=== PATIENT | female | born 1950 | race Caucasian/White ===

== ENCOUNTER 2019-10-15 11:06 | Emergency (ER) | payer MEDICARE, OTHER ==
[~2019-10-15] VITALS: Ht 167.7 cm; Wt 68.1 kg
[2019-10-15] MEDS ORDERED: METO-333 (11:18)
[2019-10-15] MEDS ORDERED: WARF4TAB70 (11:18)
[2019-10-15] MEDS ORDERED: POTA20TA15 (11:18)
[2019-10-15] MEDS ORDERED: EZET10TA49 (11:20)
[2019-10-15] MEDS ORDERED: SERT50TA9 (11:20)
[2019-10-15] MEDS ORDERED: TRAM50TA3 (11:20)
[2019-10-15] MEDS ORDERED: ATOR80TA76 (11:20)
[2019-10-15] MEDS ORDERED: LIDOCAINE 1% INJ 20 ML 20 ML VIAL INJ ONE (11:30)
--- NOTE | 2019-10-15 11:30 | ED Trauma-Multisystem ---
General Chief Complaint: Laceration Stated Complaint: PINKY LAC Source of Information: Patient, EMS Exam Limitations: No Limitations History of Present Illness Date Seen by Provider: Oct 15, 2019 Time Seen by Provider: 11:10 Initial Comments The patient is a pleasant 69-year-old female presents for evaluation after a mechanical fall. She states that she was walking when she tripped and hit her left forehead on the ground. She did not lose consciousness and is denying any headache or neck pain. She is anticoagulated with warfarin. She also has a laceration to the left pinky which is a distal fingertip avulsion. She denies shortness of breath, chest pain, abdominal or back pain, dizziness, vision changes, focal weakness or numbness, nausea or vomiting. She is not up-to-date with tetanus so this will be given today. She is alert and oriented 4, calm, and appears to be in no distress. Occurred: Just Prior to Arrival Severity: Moderate Pain/Injury Location: Face, Upper Extremity (left 5th finger laceration) Method of Injury: Fall Modifying Factors: Movement (of finger makes pain worse) Loss of Consciousness: No Loss of Consciousness Associated Symptoms (Fall): Denies Symptoms Allergies and Home Medications Allergies Coded Allergies: No Known Drug Allergies (Unverified , 10/15/19) Patient Home Medication List Home Medication List Reviewed: Yes Review of Systems Review of Systems Constitutional: no symptoms reported Eyes: Other (left periorbital contusion) Ears: No Symptoms Reported Nose: No Symptoms Reported Mouth: No Symptoms Reported Throat: No Symptoms to Report Respiratory: no symptoms reported Cardiovascular: No Symptoms Reported Gastrointestinal: no symptoms reported Genitourinary: no symptoms reported Musculoskeletal: no symptoms reported Skin: other (fingertip avulsion laceration to the left fifth finger) Psychiatric/Neurological: No Symptoms Reported Past Bjqsmrj-Gzivik-Sxlbbk Hx Past Med/Social Hx: Reviewed Nursing Past Med/Soc Hx Physical Exam Vital Signs Vital Signs - First Documented 10/15/19 11:06 Temp 35.4 Pulse 55 Resp 16 B/P (MAP) 151/98 (115) Pulse Ox 99 O2 Delivery Room Air Height, Weight, BMI Height: '" Weight: lbs. oz. kg; BMI Method: General Appearance: No Apparent Distress, WD/WN Head: Contusions (contusion above the left eye, no laceration); No Active Bleeding, No Moy's Sign Eyes: Bilateral Eye Normal Inspection, Bilateral Eye PERRL, Bilateral Eye EOMI Ears, Nose, Throat: No Evidence of ENT Injury, No Dental Injury Neck: Full Range of Motion, Normal Inspection, Non Tender Cardiovascular: Regular Rate, Rhythm, No Edema, No Murmur, Normal Peripheral Pulses Respiratory: Lungs Clear, Normal Breath Sounds, No Accessory Muscle Use, No Re spiratory Distress Gastrointestinal: Normal Bowel Sounds Back: Normal Inspection, No CVA Tenderness, No Vertebral Tenderness Extremity: Normal Inspection, Normal Range of Motion, Non Tender, Other (fingertip avulsion laceration to the left fifth finger, no active bleeding) Neurologic/Psychiatric: Alert, Oriented x3, No Motor/Sensory Deficits, Normal Mood/Affect Skin: Normal Color, Other (laceration to the left fifth finger tip) Abington Coma Score Best Eye Response (Chauncey): (4) Open Spontaneously Best Verbal Response (Abington): (5) Oriented Best Motor Response (Abington): (6) Obeys Commands Procedures/Interventions Wound Location: Upper Extremities Other Wound Location left 5th digit tip Wound's Depth, Shape: flap Wound Explored: clean Irrigated w/ Saline (ccs): 500 Anesthesia: 1% Lidocaine Volume Anesthetic (ccs): 3 Wound Debrided: minimal Suture: Plain Suture Size: 4-0 Number of Sutures: 6 Layer Closure?: 1 Progress 3 sided ring block performed, no complications, patient tolerated well, ane sthesia achieved. 6 4-0 nylon sutures were placed to tack down the avulsed fingertip, there is good blood flow to the fingertip before and after the procedure and no active bleeding, a finger tourniquet was used during the procedure Progress/Results/Core Measures Results/Orders My Orders Orders - GABRIELA YANG DO Ct Head/Face/Cervical Wo (10/15/19 11:15) Lidocaine 1% Inj 20 Ml (Xylocaine 1% Inj (10/15/19 11:30) Dipht,Pertuss(Acell),Tet Adult (Boostrix (10/15/19 12:30) Medications Given in ED Current Medications Medications Dose Ordered Sig/Jeronimo Route Start Time Stop Time Status Last Admin Dose Admin Lidocaine HCl 20 ml ONCE ONCE INJ 10/15/19 11:30 10/15/19 11:31 DC 10/15/19 11:24 20 ML Vital Signs/I&O 10/15/19 11:06 Temp 35.4 Pulse 55 Resp 16 B/P (MAP) 151/98 (115) Pulse Ox 99 O2 Delivery Room Air Progress Progress Note : Progress Note @1252 - the patient is been updated on her imaging results which are acutely unremarkable. She states she is feeling good and would like to go home. She'll need to have her sutures removed in 7-10 days. Advised patient to return to the emergency Department immediately for new or worsening symptoms and she expresses verbal understanding and agreement with the plan. The patient is stable for discharge home at this time. Diagnostic Imaging Diagonstic Imaging: CT Comments [facility]. [place], [place] NAME: FANNY DUFFY [facility] REC#: [id number] PT STATUS: REG ER : 1950 PHYSICIAN: GABRIELA YANG DO ADMIT DATE: 10/15/19/ER FS Draft Date of Exam:10/15/19 CT HEAD/FACE/CERVICAL WO PROCEDURE: CT head, face, and cervical spine without contrast. TECHNIQUE: Multiple contiguous axial images were obtained through the head, neck, and facial bones without the use of intravenous contrast. Sagittal and coronal reformations through the cervical spine and facial bones were also performed. Auto Exposure Controls were utilized during the CT exam to meet ALARA standards for radiation dose reduction. INDICATION: Traumatic head, face, and neck injury sustained during fall. Left periorbital contusion. COMPARISON: None FINDINGS - CT BRAIN: BRAIN: No parenchymal hemorrhage, midline shift, or mass effect. 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 Ma-white matter differentiation is otherwise adequately preserved, without evidence of acute territorial infarct. Mild prominence of the ventricles and sulci is compatible with cortical and cerebellar parenchymal volume loss, commensurate with age. No prominent white matter changes. EXTRA-AXIAL SPACES: No subdural or epidural collections. CALVARIUM AND SOFT TISSUES: The calvarium is intact. The extracranial soft tissues are unremarkable. FINDINGS - CT FACIAL BONES: ORBITAL AND PERIORBITAL SOFT TISSUES: No abnormality is noted in the periorbital soft tissues. The globes are intact. There is no focal abnormality in the retrobulbar fat. Extraocular muscles are intact. FACIAL SOFT TISSUES: No edema, hematoma, focal fluid collection or other abnormality is demonstrated. The mucosal surfaces are unremarkable. ORBITAL STERN: The orbital stern are intact. No fracture is identified. PARANASAL SINUSES: There is minimal mucosal thickening in the lateral aspect of the right maxillary sinus inferiorly. The visualized paranasal sinuses and mastoid air cells are otherwise clear. There is hypoaeration/underdevelopment of the frontal sinuses. NASAL BONES: No displaced fracture is identified. ZYGOMATIC ARCHES: Normal. PTERYGOID PLATES: Normal. MAXILLA AND ALVEOLUS: No fracture is identified. Multiple maxillary teeth are missing. There are multiple dental caries. No prominent periapical lucency is demonstrated. MANDIBLE: No fracture or dislocation. Multiple mandibular teeth are missing and there are multiple dental caries. No prominent periapical lucency is demonstrated. FINDINGS - CT CERVICAL SPINE: SPINE: No fracture or acute osseous abnormality. Vertebral body heights are maintained. There is straightening and reversal of the normal cervical lordosis, which may be positional in nature or related to muscle spasm. No subluxation. There is multilevel degenerative loss of disc height, most pronounced at the C5-C6 and C6-C7 levels, with marginal osteophyte formation and uncovertebral spurring also noted at these levels. There is moderate right neural foraminal narrowing at the C5-C6 level and mild right neural foraminal narrowing at the C6-C7 level. No locked or perched facet. SOFT TISSUES AND LUNG APICES: No abnormality involving the prevertebral soft tissues. The regional neck soft tissues are unremarkable. Marked calcification is noted at both carotid bifurcations. Marked emphysematous change and pleural parenchymal scarring is demonstrated in both lung apices. A benign calcified granuloma is demonstrated in the right lung apex. IMPRESSION: CT BRAIN: No acute intracranial pathology related to patient's reported history of trauma. 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 Other chronic findings are detailed above. IMPRESSION: CT MAXILLOFACIAL: No facial fracture or other acute abnormality is demonstrated. IMPRESSION: CT CERVICAL SPINE: Multilevel degenerative changes of the cervical spine, without evidence of acute fracture or subluxation. Dictated on workstation # [id number] Dict: 10/15/19 1221 Trans: 10/15/19 1241 [facility] [id number] Interpreted by: LANE DUCKWORTH DO Electronically signed by: Departure Impression Primary Impression: Closed head injury Additional Impressions: Forehead contusion Fingertip avulsion Disposition: 01 HOME, SELF-CARE Condition: Stable Departure-Patient Inst. Decision time for Depature: 12:53 Referrals: [facility] [place] Instructions: Laceration Repair With Stitches (DC), Minor Head Injury (DC) Add. Discharge Instructions: Your stitches will need to be removed in 7-10 days so you can return to the emergency department or call your doctor's office at that time. Return to the emergency Department immediately for new or worsening symptoms. Follow-up with your doctor in the next 2-3 days for wound check. Keep the wound clean and dry. GABRIELA YANG DO Oct 15, 2019 11:30
[2019-10-15] MEDS ORDERED: TETANUS,DIPTH,PERTUSS P/F (BOOSTRIX) 0.5 ML VIAL IM ONE (12:30)
--- NOTE | 2019-10-15 12:42 | Diagnostic Imaging Report ---
PROCEDURE: CT head, face, and cervical spine without contrast. TECHNIQUE: Multiple contiguous axial images were obtained through the head, neck, and facial bones without the use of intravenous contrast. Sagittal and coronal reformations through the cervical spine and facial bones were also performed. Auto Exposure Controls were utilized during the CT exam to meet ALARA standards for radiation dose reduction. INDICATION: Traumatic head, face, and neck injury sustained during fall. Left periorbital contusion. COMPARISON: None FINDINGS - CT BRAIN: BRAIN: No parenchymal hemorrhage, midline shift, or mass effect. 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 Ma-white matter differentiation is otherwise adequately preserved, without evidence of acute territorial infarct. Mild prominence of the ventricles and sulci is compatible with cortical and cerebellar parenchymal volume loss, commensurate with age. No prominent white matter changes. EXTRA-AXIAL SPACES: No subdural or epidural collections. CALVARIUM AND SOFT TISSUES: The calvarium is intact. The extracranial soft tissues are unremarkable. FINDINGS - CT FACIAL BONES: ORBITAL AND PERIORBITAL SOFT TISSUES: No abnormality is noted in the periorbital soft tissues. The globes are intact. There is no focal abnormality in the retrobulbar fat. Extraocular muscles are intact. FACIAL SOFT TISSUES: No edema, hematoma, focal fluid collection or other abnormality is demonstrated. The mucosal surfaces are unremarkable. ORBITAL OZUNA: The orbital ozuna are intact. No fracture is identified. PARANASAL SINUSES: There is minimal mucosal thickening in the lateral aspect of the right maxillary sinus inferiorly. The visualized paranasal sinuses and mastoid air cells are otherwise clear. There is hypoaeration/underdevelopment of the frontal sinuses. NASAL BONES: No displaced fracture is identified. ZYGOMATIC ARCHES: Normal. PTERYGOID PLATES: Normal. MAXILLA AND ALVEOLUS: No fracture is identified. Multiple maxillary teeth are missing. There are multiple dental caries. No prominent periapical lucency is demonstrated. MANDIBLE: No fracture or dislocation. Multiple mandibular teeth are missing and there are multiple dental caries. No prominent periapical lucency is demonstrated. FINDINGS - CT CERVICAL SPINE: SPINE: No fracture or acute osseous abnormality. Vertebral body heights are maintained. There is straightening and reversal of the normal cervical lordosis, which may be positional in nature or related to muscle spasm. No subluxation. There is multilevel degenerative loss of disc height, most pronounced at the C5-C6 and C6-C7 levels, with marginal osteophyte formation and uncovertebral spurring also noted at these levels. There is moderate right neural foraminal narrowing at the C5-C6 level and mild right neural foraminal narrowing at the C6-C7 level. No locked or perched facet. SOFT TISSUES AND LUNG APICES: No abnormality involving the prevertebral soft tissues. The regional neck soft tissues are unremarkable. Marked calcification is noted at both carotid bifurcations. Marked emphysematous change and pleural parenchymal scarring is demonstrated in both lung apices. A benign calcified granuloma is demonstrated in the right lung apex. IMPRESSION: CT BRAIN: No acute intracranial pathology related to patient's reported history of trauma. 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 Other chronic and incidental findings are detailed above. IMPRESSION: CT MAXILLOFACIAL: No facial fracture or other acute abnormality is demonstrated. IMPRESSION: CT CERVICAL SPINE: Multilevel degenerative change of the cervical spine, without evidence of acute fracture or subluxation. Dictated by: Dictated on workstation # [id number]
--- NOTE | 2019-10-15 12:58 | NUR ---
Daughter called, update given. Plan discharge.
[2019-10-15 13:10] VITALS: BP 148/92
== END 2019-10-15 13:10 | disposition home or self-care (01) ==
LOC: EDBD 11:08 → ER FS 11:08
DX: S09.90XA Unspecified injury of head, initial encounter (principal); S00.83XA Contusion of other part of head, initial encounter; S61.207A Unspecified open wound of left little finger without damage to nail, initial encounter; R40.2142 Coma scale, eyes open, spontaneous, at arrival to emergency department; R40.2252 Coma scale, best verbal response, oriented, at arrival to emergency department; R40.2362 Coma scale, best motor response, obeys commands, at arrival to emergency department; Z23 Encounter for immunization; Z79.01 Long term (current) use of anticoagulants; W01.198A Fall on same level from slipping, tripping and stumbling with subsequent striking against other object, initial encounter
CPT/HCPCS: 12002; 70450; 70486; 72125; 99284; A6223; 90471; 90715

== ENCOUNTER 2019-10-23 11:57 | Emergency (ER) | payer MEDICARE ==
[~2019-10-23 11:57] MED LIST: ATOR80TA76; EZET10TA49; METO-333; POTA20TA15; SERT50TA9; TRAM50TA3; WARF4TAB70
[2019-10-23 12:15] VITALS: BP 105/76
[2019-10-23] MEDS ORDERED: CEPH500T PO (12:26)
--- NOTE | 2019-10-23 12:26 | ED Suture Removal/Wound Check ---
Suture/Wound Re-check Suture Removal/Wound Recheck : Progress 69-year-old female presenting with wound check and possible removal of stitches. She had stitches placed on October 14. There is been no drainage from the wound but she has increased tenderness and redness with swelling. She is on warfarin and it is therapeutic. She's had no fever or chills. With the increased swelling and tenderness Will treat with 5 days of Keflex prior to removing the stitches. There is concern that there might be some infection causing the tenderness and swelling as well as increased redness. Rather than remove the stitches now and risk possible dehiscence of the wound will give him in for a few more days. Have the wound rechecked on Sunday for possible suture removal. General Appearance: WD/WN, no apparent distress Neuro/Tendon: normal sensation, normal motor functions, normal tendon functions Skin Exam: warm/dry, other (increased erythema to finger and around stitches. No fluctuance, drainage, induration. swelling noted to fingertip with stitches and increased tenderness with palpation) Physical Exam Vital Signs Vital Signs - First Documented 10/23/19 12:15 Temp 37.0 Pulse 57 Resp 18 B/P (MAP) 105/76 Pulse Ox 95 O2 Delivery Room Air Capillary Refill : General Appearance: WD/WN, no apparent distress Departure Impression Primary Impression: Wound cellulitis Disposition: 01 HOME, SELF-CARE Condition: Stable Departure-Patient Inst. Decision time for Depature: 12:25 Referrals: GARDENIA THORNTON MD (PCP/Family) Primary Care Physician Patient Instructions: Cellulitis (Skin Infection), Adult (DC) Add. Discharge Instructions: Take antibiotic and see about having stitches removed on Sunday, October 26. All discharge instructions reviewed with patient and/or family. Voiced understanding. Scripts Cephalexin (Cephalexin) 500 Mg Tablet 500 MG PO QID for cellulitis for 5 Days, #20 TAB 0 Refills Prov: NELLY RAMOS MD 10/23/19 NELLY RAMOS MD Oct 23, 2019 12:26
--- OUTSIDE RECORDS SUMMARY | 2019-10-23 13:47 | XMS REPORT | Continuity of Care Document ---
Author Organization Unknown Address Unknown Phone Unavailable Allergies Active Description Code Type Severity Reaction Onset Reported/Identified Relationship to Patient Clinical Status Yes No known allergies NK N/A N/A 04/23/2013 Yes No Known Drug Allergies [id number] Drug Allergy Unknown N/A 10/15/2019 Medications There is no data. Problems Date Dx Coded Attending Type Code Diagnosis Diagnosed By 04/23/2013 RENITA COLEMAN, STAR Narayanan 719. 45 JOINT PAIN-PELVIS 04/23/2013 RENITA COLEMAN, STAR Roberts 729. 5 PAIN IN LIMB 10/17/2019 CELIA OCHOA DO Ot R40.2142 COMA SCALE, EYES OPEN, SPONTANEOUS, EMR 10/17/2019 CELIA OCHOA DO Ot R40.2252 COMA SCALE, BEST VERBAL RESPONSE, ORIENT 10/17/2019 CELIA OCHOA DO Ot R40.2362 COMA SCALE, BEST MOTOR RESPONSE, OBEYS C 10/17/2019 CELIA OCHOA DO Ot S00.83XA CONTUSION OF OTHER PART OF HEAD, INITIAL 10/17/2019 CELIA OCHOA DO Ot S09.90XA UNSPECIFIED INJURY OF HEAD, INITIAL ENCO 10/17/2019 CELIA OCHOA DO Ot S61.207A UNSP OPEN WOUND OF L LITTLE FINGER W/O D 10/17/2019 CELIA OCHOA DO Ot W01.198A FALL SAME LEV FROM SLIP/TRIP W STRIKE AG 10/17/2019 CELIA OCHOA DO Ot Z23 ENCOUNTER FOR IMMUNIZATION 10/17/2019 CELIA OCHOA DO Ot 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 BRAZILIAN 49 mL/min/1.73m2 > OR = 60 eGFR 56 mL/min/1.73m2 > OR = 60 BUN/CREATININE RATIO 19 (calc) 6-22 SODIUM 141 mmol/L 135-146 POTASSIUM 4.4 mmol/L 3.5-5.3 CHLORIDE 104 mmol/L 98-110 CARBON DIOXIDE 25 mmol/L 20-32 CALCIUM 9.6 mg/dL 8.6-10.4 PROTEIN, TOTAL 7.5 g/dL 6.1-8.1 ALBUMIN 4.2 g/dL 3.6-5.1 GLOBULIN 3.3 g/dL (calc) 1.9-3.7 ALBUMIN/GLOBULIN RATIO 1.3 (calc) 1.0-2. 5 BILIRUBIN, TOTAL 0.5 mg/dL 0.2-1.2 ALKALINE PHOSPHATASE 100 U/L 33-130 AST 26 U/L 10-35 ALT 34 U/L 6-29 CBC w/MANUAL DIFF - 08/07/18 08:00 WHITE BLOOD CELL COUNT 9.3 Thousand/uL 3 .8-10.8 RED BLOOD CELL COUNT 4.89 Million/uL 3.8 0-5.10 HEMOGLOBIN 15.4 g/dL 11.7-15.5 HEMATOCRIT 47.9 % 35.0-45.0 MCV 98.0 fL 80.0-100.0 MCH 31.5 pg 27.0-33.0 MCHC 32.2 g/dL 32.0-36.0 RDW 12.8 % 11.0-15.0 PLATELET COUNT 321 Thousand/uL 140-400 MPV 10.2 fL 7.5-12.5 ABSOLUTE NEUTROPHILS 4650 cells/uL 1500- 7800 ABSOLUTE MONOCYTES 874 cells/uL 200-950 ABSOLUTE EOSINOPHILS 577 cells/uL 15-500 ABSOLUTE BASOPHILS 0 cells/uL 0-200 NEUTROPHILS 50.0 % NRG LYMPHOCYTES 34.4 % NRG MONOCYTES 9.4 % NRG EOSINOPHILS 6.2 % NRG BASOPHILS 0 % NRG ABSOLUTE LYMPHOCYTES 3199 cells/uL 850-3 900 PLATELET ESTIMATION ADEQUATE ADEQUATE COMMENT(S) NRG TSH w/ FREE T4 - 02/07/19 07:57 TSH 3.60 mIU/L 0.40-4.50 T4, FREE 1.1 ng/dL 0.8-1.8 LIPID PANEL - 02/07/19 07:57 CHOLESTEROL, TOTAL 167 mg/dL <200 HDL CHOLESTEROL 59 mg/dL >50 TRIGLYCERIDES 127 mg/dL <150 LDL-CHOLESTEROL 86 mg/dL (calc) NRG CHOL/HDLC RATIO 2.8 (calc) <5.0 NON HDL CHOLESTEROL 108 mg/dL (calc) <13 0 CMP - 02/07/19 07:57 GLUCOSE 83 mg/dL 65-99 UREA NITROGEN (BUN) 24 mg/dL 7-25 CREATININE 1.01 mg/dL 0.60-0.93 eGFR NON-AFR. BRAZILIAN 56 mL/min/1.73m2 > OR = 60 eGFR 65 mL/min/1.73m2 > OR = 60 BUN/CREATININE RATIO 24 (calc) 6-22 SODIUM 141 mmol/L 135-146 POTASSIUM 4.2 mmol/L 3.5-5.3 CHLORIDE 103 mmol/L 98-110 CARBON DIOXIDE 24 mmol/L 20-32 CALCIUM 9.9 mg/dL 8.6-10.4 PROTEIN, TOTAL 7.5 g/dL 6.1-8.1 ALBUMIN 4.2 g/dL 3.6-5.1 GLOBULIN 3.3 g/dL (calc) 1.9-3.7 ALBUMIN/GLOBULIN RATIO 1.3 (calc) 1.0-2. 5 BILIRUBIN, TOTAL 0.4 mg/dL 0.2-1.2 ALKALINE PHOSPHATASE 111 U/L 33-130 AST 42 U/L 10-35 ALT 45 U/L 6-29 CBC w/MANUAL DIFF - 02/07/19 07:57 WHITE BLOOD CELL COUNT 11.1 Thousand/uL 3.8-10.8 RED BLOOD CELL COUNT 4.69 Million/uL 3.8 0-5.10 HEMOGLOBIN 15.5 g/dL 11.7-15.5 HEMATOCRIT 47.6 % 35.0-45.0 MCV 101.5 fL 80.0-100.0 MCH 33.0 pg 27.0-33.0 MCHC 32.6 g/dL 32.0-36.0 RDW 12.2 % 11.0-15.0 PLATELET COUNT 325 Thousand/uL 140-400 MPV 11.0 fL 7.5-12.5 ABSOLUTE NEUTROPHILS 5606 cells/uL 1500- 7800 ABSOLUTE MONOCYTES 1010 cells/uL 200-950 ABSOLUTE EOSINOPHILS 222 cells/uL 15-500 ABSOLUTE BASOPHILS 0 cells/uL 0-200 NEUTROPHILS 50.5 % NRG LYMPHOCYTES 38.4 % NRG MONOCYTES 9.1 % NRG EOSINOPHILS 2.0 % NRG BASOPHILS 0 % NRG ABSOLUTE LYMPHOCYTES 4262 cells/uL 850-3 900 PLATELET ESTIMATION ADEQUATE ADEQUATE COMMENT(S) NRG TSH w/ FREE T4 - 06/10/19 09:39 TSH 1.13 mIU/L 0.40-4.50 T4, FREE 1.4 ng/dL 0.8-1.8 LIPID PANEL - 06/10/19 09:39 CHOLESTEROL, TOTAL 168 mg/dL <200 HDL CHOLESTEROL 59 mg/dL > OR = 50 TRIGLYCERIDES 133 mg/dL <150 LDL-CHOLESTEROL 86 mg/dL (calc) NRG CHOL/HDLC RATIO 2.8 (calc) <5.0 NON HDL CHOLESTEROL 109 mg/dL (calc) <13 0 CMP - 06/10/19 09:39 GLUCOSE 82 mg/dL 65-99 UREA NITROGEN (BUN) 17 mg/dL 7-25 CREATININE 1.01 mg/dL 0.60-0.93 eGFR NON-AFR. BRAZILIAN 56 mL/min/1.73m2 > OR = 60 eGFR 65 mL/min/1.73m2 > OR = 60 BUN/CREATININE RATIO 17 (calc) 6-22 SODIUM 138 mmol/L 135-146 POTASSIUM 4.5 mmol/L 3.5-5.3 CHLORIDE 102 mmol/L 98-110 CARBON DIOXIDE 22 mmol/L 20-32 CALCIUM 10.1 mg/dL 8.6-10.4 PROTEIN, TOTAL 7.3 g/dL 6.1-8.1 ALBUMIN 4.2 g/dL 3.6-5.1 GLOBULIN 3.1 g/dL (calc) 1.9-3.7 ALBUMIN/GLOBULIN RATIO 1.4 (calc) 1.0-2. 5 BILIRUBIN, TOTAL 0.5 mg/dL 0.2-1.2 ALKALINE PHOSPHATASE 113 U/L 37-153 AST 27 U/L 10-35 ALT 32 U/L 6-29 CBC w/MANUAL DIFF - 06/10/19 09:39 WHITE BLOOD CELL COUNT 10.1 Thousand/uL 3.8-10.8 RED BLOOD CELL COUNT 4.48 Million/uL 3.8 0-5.10 HEMOGLOBIN 15.0 g/dL 11.7-15.5 HEMATOCRIT 43.6 % 35.0-45.0 MCV 97.3 fL 80.0-100.0 MCH 33.5 pg 27.0-33.0 MCHC 34.4 g/dL 32.0-36.0 RDW 12.4 % 11.0-15.0 PLATELET COUNT 344 Thousand/uL 140-400 MPV 11.1 fL 7.5-12.5 ABSOLUTE NEUTROPHILS 7353 cells/uL 1500- 7800 ABSOLUTE MONOCYTES 586 cells/uL 200-950 ABSOLUTE EOSINOPHILS 0 cells/uL 15-500 ABSOLUTE BASOPHILS 101 cells/uL 0-200 NEUTROPHILS 72.8 % NRG LYMPHOCYTES 20.4 % NRG MONOCYTES 5.8 % NRG EOSINOPHILS 0 % NRG BASOPHILS 1.0 % NRG ABSOLUTE LYMPHOCYTES 2060 cells/uL 850-3 900 PLATELET ESTIMATION ADEQUATE ADEQUATE CBC MORPHOLOGY NORMAL COMMENT(S) NRG Encounters ACCT No. Visit Date/Time Discharge Status Pt. Type Provider Facility Loc./Unit Complaint [id number] 04/23/2013 12:44:00 04/23/2013 13:10 :00 DIS Emergency RENITA COLEMAN, STAR [facility] ER [id number] 02/22/2013 16:40:00 02/22/2013 23:59 :59 CLS Emergency YAELJOSÉNATE SILVERIO [facility] ER [id number] 10/15/2019 11:08:00 020 13:10:00 DIS Outpatient CELIA OCHOA DO Via [facility] ER FS CHRISTOPHE LAC [id number] 04/23/2014 11:38:02 04/23/2014 23:59: 59 CLS Outpatient Juliana Calloway [id number] 03/30/2014 14:33:47 03/30/2014 23:59: 59 CLS Outpatient Samir Calloway [id number] 02/23/2014 14:53:20 02/23/2014 23:59: 59 CLS Outpatient Labes, Samir L [id number] 01/26/2014 14:42:24 01/26/2014 23:59: 59 CLS Outpatient Labes, Samir L [id number] 01/08/2014 09:58:01 01/08/2014 23:59: 59 CLS Outpatient Labes, Samir L [id number] 12/22/2013 14:35:15 12/22/2013 23:59: 59 CLS Outpatient Labes, Samir L [id number] 11/27/2013 10:27:25 11/27/2013 23:59: 59 CLS Outpatient Labes, Samir L [id number] 10/27/2013 14:34:45 10/27/2013 23:59: 59 CLS Outpatient Labes, Samir L [id number] 10/13/2013 14:39:35 10/13/2013 23:59: 59 CLS Outpatient Labes, Samir L [id number] 09/29/2013 14:41:04 09/29/2013 23:59: 59 CLS Outpatient Labes, Samir L [id number] 09/08/2013 14:37:36 09/08/2013 23:59: 59 CLS Outpatient Labes, Samir L [id number] 08/25/2013 14:36:23 08/25/2013 23:59: 59 CLS Outpatient Labes, Samir L [id number] 07/28/2013 14:38:44 07/28/2013 23:59: 59 CLS Outpatient Labes, Samir L [id number] 07/14/2013 14:37:32 07/14/2013 23:59: 59 CLS Outpatient Labes, Samir L [id number] 06/23/2013 14:49:40 06/23/2013 23:59: 59 CLS Outpatient Labes, Samir L [id number] 06/09/2013 15:01:01 06/09/2013 23:59: 59 CLS Outpatient Labes, Samir L [id number] 05/12/2013 14:38:08 05/12/2013 23:59: 59 CLS Outpatient Labes, Samir L [id number] 04/23/2013 14:24:38 04/23/2013 23:59: 59 CLS Outpatient Star King [id number] 04/15/2013 10:45:21 04/15/2013 23:59: 59 CLS Outpatient Labes, Samir L [id number] 04/14/2013 16:12:25 04/14/2013 23:59: 59 ZULEIKA Outpatient Samir Calloway [id number] 10/21/2019 10:20:00 ACT Outpatient GARDENIA THORNTON [facility] Y [id number] 06/10/2019 09:40:00 Document Registration [id number] 02/07/2019 08:00:00 Document Registration [id number] 08/07/2018 08:00:00 Document Registration
--- OUTSIDE RECORDS SUMMARY | 2019-10-23 13:47 | XMS REPORT ---
Author Author Carolynn THORNTON Organization [facility] Address [address] [address] Care Team Providers Care Frame Assembler Name Role Phone GARDENIA THORNTON Unavailable PROBLEMS Type Condition ICD9-CM Code AIQ75-LR Code Onset Dates Condition S tatus SNOMED Code Problem Chronic fatigue R53.82 Active 5270 2002 Problem SADIQ (generalized anxiety disorder) F41.1 Active 25221208 Problem Essential hypertension I10 Active 68070882 Problem Chronic atrial fibrillation I48.2 Ac tive 178488235 Problem Hypercholesterolemia E78.00 Active 43782402 ALLERGIES No Information ENCOUNTERS Encounter Location Date Diagnosis [facility] [address] [place] [phone] 9 May, [facility] [address] [place] [phone] 9 Mar, [place] [address] [place] [phone] 9 Jan, Chronic atrial fibrillation I48.2 ; Essential hypertension I10 ; Hypercholesterolemia E78.00 and SADIQ (generalized anxiety disorder) F41.1 [place] [address] [place] [id number] [place] [phone] 9 Jan, Chronic atrial fibrillation I48.2 [facility] [address] [place] [phone] 9 Dec, [place] [address] [place] [address] [phone] 9 Aug, [place] [address] [place] [phone] 9 Aug, [place] [address] [place] [id number] [place] [phone] 9 July, [facility] [place] [address] [id number] [place] [address] July, [facility] [address] [place] [id number] [place] [place] [address] 9 July, Chronic atrial fibrillation I48.2 ; Essential hypertension I10 ; Hypercholesterolemia E78.00 and SADIQ (generalized anxiety disorder) F41.1 [facility] [address] [facility] [place] [place] [address] July, Chronic atrial fibrillation I48.2 [facility] [address] [id number] [place] [address], [place] [address] 9 Jun, [facility] [address] [facility] [place] [place] [address] 9 May, [facility] [address] [place] [id number] [place] [address], [place] [address] 9 May, [facility] [address] [place] [id number] [place] [address] 9 Apr, [facility] [address] [place] [id number] [place] [address] 9 Apr, [facility] [address] [place] [id number] [place] [place] [address] 9 Apr, [facility] [address] [place] [id number] [place] [address] 9 Apr, [facility] [address] [place] [id number] [place] [address] 9 Apr, [facility] [address] [id number] [address] 9 Apr, [facility] [address] [facility] [id number] [address] Mar, Shortness of breath R06.02 [facility] [address] [id number] [address] 9 Mar, Shortness of breath R06.02 [facility] [address] [id number] [address] Mar, [facility] [address] [place] [id number] [address] 9 Mar, Essential hypertension I10 ; Venous thromboembolism (VTE) I82.90 ; Chronic atrial fibrillation I48.2 and Shortness of breath R06.02 [place] [address] [place] [id number] [address] Mar, [place] [address] [place] [address] 9 Mar, Chronic atrial fibrillation I48.2 ; Hypercholesterolemia E78.00 ; Essential hypertension I10 and Chronic fatigue R53.82 [place] [address] [place] [id number] [address] Mar, [facility] [address] [facility] [place] [id number] Sep, Dental examination V72.2 [facility] [place] [address] [id number] [place] [address] Jan, IMMUNIZATIONS No Known Immunizations SOCIAL HISTORY Never Assessed REASON FOR VISIT PLAN OF CARE VITAL SIGNS MEDICATIONS Unknown Medications RESULTS No Results PROCEDURES No Known procedures INSTRUCTIONS MEDICATIONS ADMINISTERED No Known Medications MEDICAL (GENERAL) HISTORY Type Description Date Medical History hypertension Medical History blood clots Surgical History hysterectomy 1985 Hospitalization History blood clots
== END 2019-10-23 12:30 | disposition home or self-care (01) ==
LOC: EDUNIT# 11:57 → ER FS 12:01
DX: L03.012 Cellulitis of left finger (principal)
CPT/HCPCS: 99282

== ENCOUNTER 2019-10-27 08:16 | Emergency (ER) | payer MEDICARE ==
[~2019-10-27 08:16] MED LIST changes: +CEPH500T PO
[2019-10-27 08:23] VITALS: BP 99/82
--- OUTSIDE RECORDS SUMMARY | 2019-10-27 08:28 | XMS REPORT | Continuity of Care Document ---
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 LEBANESE 49 mL/min/1.73m2 > OR = 60 eGFR [...] 7-25 CREATININE 1.01 mg/dL 0.60-0.93 eGFR NON-AFR. LEBANESE 56 mL/min/1.73m2 > OR = 60 eGFR [...] 7-25 CREATININE 1.01 mg/dL 0.60-0.93 eGFR NON-AFR. LEBANESE 56 mL/min/1.73m2 > OR = 60 eGFR [...] Status Pt. Type Provider Facility Loc./Unit Complaint [id number] 04/23/2013 12:44:00 04/23/2013 13:10 :00 DIS Emergency STAR KING MD [facility] ER [id number] 02/22/2013 16:40:00 02/22/2013 23:59 :59 CLS Emergency NATE BRYSON [facility] ER [id number] 10/23/2019 12:01:00 020 12:30:00 DIS Outpatient NELLY RAMOS MD [facility] ER FS SUTURE REMOVAL [id number] 10/15/2019 11:08:00 020 13:10:00 DIS Outpatient CELIA OCHOA DO Via [facility] FS AUSTINY VESNA [id number] 04/23/2014 11:38:02 04/23/2014 23:59: 59 CLS Outpatient Labes, Juliana [id number] 03/30/2014 14:33:47 03/30/2014 23:59: 59 CLS Outpatient Labes, Samir L [id number] 02/23/2014 14:53:20 02/23/2014 23:59: 59 CLS Outpatient Labes, Samir L [id number] 01/26/2014 14:42:24 01/26/2014 23:59: 59 CLS Outpatient Labes, Samir L [id number] 01/08/2014 09:58:01 01/08/2014 23:59: 59 CLS Outpatient Labes, Samir L [id number] 12/22/2013 14:35:15 12/22/2013 23:59: 59 CLS Outpatient Labes, Samir L [id number] 11/27/2013 10:27:25 11/27/2013 23:59: 59 CLS Outpatient Labes, Samir L [id number] 10/27/2013 14:34:45 10/27/2013 23:59: 59 CLS Outpatient Labes, Samir L [id number] 10/13/2013 14:39:35 10/13/2013 23:59: 59 CLS Outpatient Labes, Samir L [id number] 09/29/2013 14:41:04 09/29/2013 23:59: 59 CLS Outpatient Labes, Samir L [id number] 09/08/2013 14:37:36 09/08/2013 23:59: 59 CLS Outpatient Labes, Samir L [id number] 08/25/2013 14:36:23 08/25/2013 23:59: 59 CLS Outpatient Labes, Samir L [id number] 07/28/2013 14:38:44 07/28/2013 23:59: 59 CLS Outpatient Labes, Samir L [id number] 07/14/2013 14:37:32 07/14/2013 23:59: 59 CLS Outpatient Labes, Samir L [id number] 06/23/2013 14:49:40 06/23/2013 23:59: 59 CLS Outpatient Labes, Samir L [id number] 06/09/2013 15:01:01 06/09/2013 23:59: 59 CLS Outpatient Labes, Samir L [id number] 05/12/2013 14:38:08 05/12/2013 23:59: 59 CLS Outpatient Samir Calloway [id number] 04/23/2013 14:24:38 04/23/2013 23:59: 59 CLS Outpatient Star King [id number] 04/15/2013 10:45:21 04/15/2013 23:59: 59 CLS Outpatient Samir Calloway [id number] 04/14/2013 16:12:25 04/14/2013 23:59: 59 CLS Outpatient Samir Calloway [id number] 10/21/2019 10:20:00 10/21/2019 23:59:5 9 CLS Outpatient [facility]ARDENIA THORNTON [facility] [id number] 06/10/2019 09:40:00 Document Registration [id number] 02/07/2019 08:00:00 Document Registration [id number] 08/07/2018 08:00:00 Document Registration
== END 2019-10-27 08:32 | disposition home or self-care (01) ==
LOC: EDUNIT# 08:16 → ER FS 08:17
DX: Z48.02 Encounter for removal of sutures (principal)

== ENCOUNTER → 2019-11-14 | Outpatient (CLI) | payer MEDICARE ==
--- NOTE | 2019-11-14 12:42 | Diagnostic Imaging Report ---
INDICATION: Left fifth finger injury. FINDINGS: Three views of the left fifth finger show a fracture of the tip of the tuft of the distal phalanx with about 1 mm of diastasis. IMPRESSION: Cortical tuft fracture of the tip of the distal phalanx of the left fifth finger. Dictated by: Dictated on workstation # [id number]
== END ==
LOC: RAD FS 11:23
PROVIDERS: ATTEND Surgery
DX: S62.637A Displaced fracture of distal phalanx of left little finger, initial encounter for closed fracture (principal); X58.XXXA Exposure to other specified factors, initial encounter
CPT/HCPCS: 73140